=== PATIENT | female | born 2000 | race African-American/Black ===

== ENCOUNTER 2021-04-18 22:15 | Emergency (ER) | payer OTHER ==
[~2021-04-18] VITALS: Ht 170.2 cm; Wt 63.6 kg
[2021-04-18 23:59] LABS: RSV AMPLIFICATION POSITIVE (NEGATIVE)
[2021-04-19] MEDS ORDERED: KETOROLAC 60MG 2ML VIAL IM ONE (05:55)
[2021-04-19 06:00] VITALS: BP 125/74
== END 2021-04-19 06:11 | disposition home or self-care (01) ==
LOC: M ED 22:15
DX: U07.1 COVID-19 (principal); B97.4 Respiratory syncytial virus as the cause of diseases classified elsewhere
CPT/HCPCS: 87631; 96372; 99284; J1885